=== PATIENT | female | born 1990 | race Caucasian/White ===

== ENCOUNTER 2017-03-31 09:41 | Emergency (ER) | payer MEDICAID ==
[2017-03-31 10:21] LABS: microscopic required? YES; urine erythrocyte TRACE (NEGATIVE)
[2017-03-31 10:28] LABS: CALCIUM 9.1 mg/dL (8.5-10.1); CARBON DIOXIDE 30.2 mmol/L (21-32); CHLORIDE SERUM 101 mmol/L (98-107); CREATININE SERUM 0.8 mg/dL (0.6-1.0); GFR1 > 60 mL/min; GLUCOSE SERUM 121 mg/dL (74-106); POTASSIUM SERUM 3.7 mmol/L (3.5-5.1); SODIUM SERUM 137 mmol/L (136-145)
[2017-03-31 10:37] LABS: PLATELET COUNT 343 x10^3mcL (130-400)
[2017-03-31 10:54] LABS: BASOPHIL % 0 % (0-2)
[2017-03-31 13:17] VITALS: BP 134/79
== END 2017-03-31 13:17 | disposition home or self-care (01) ==
LOC: ED 09:41
PROVIDERS: Emergency Medicine
DX: G43.109 Migraine with aura, not intractable, without status migrainosus (principal); I10 Essential (primary) hypertension
CPT/HCPCS: J3010; J3030

== ENCOUNTER 2018-02-18 16:54 | Emergency (ER) | payer MEDICAID ==
[~2018-02-18] VITALS: Ht 170.2 cm; Wt 163.3 kg
[2018-02-18 17:00] VITALS: Ht 170.2 cm; Wt 163.3 kg
[2018-02-18 19:13] LABS: BASOPHIL % 0.3 % (0-2); PLATELET COUNT 336 x10^3mcL (130-400)
[2018-02-18 19:16] LABS: RED CELL DISTRIBUTION WIDTH 16.1 % (11.5-14.5)
[2018-02-18 19:23] LABS: CALCIUM 8.8 mg/dL (8.5-10.1); CHLORIDE SERUM 102 mmol/L (98-107); CREATININE SERUM 0.9 mg/dL (0.6-1.0); GFR1 > 60 mL/min; GLUCOSE SERUM 99 mg/dL (74-106); POTASSIUM SERUM 3.4 mmol/L (3.5-5.1); SODIUM SERUM 140 mmol/L (136-145)
[2018-02-18 19:26] LABS: UA SPECIFIC GRAVITY 1.025 (1.005-1.035); microscopic required? YES; urine erythrocyte TRACE (NEGATIVE)
[2018-02-18 19:34] LABS: AMPHETAMINE QUAL UR NONE DETECTED (See below)
[2018-02-18 19:35] LABS: ALBUMIN 3.5 g/dL (3.4-5.0); ALKALINE PHOSPHATASE 65 U/L (46-116); ALT/SGPT 16 U/L (14-59); BILIRUBIN TOTAL 0.27 mg/dL (0.20-1.00); FREE T4 1.05 ng/dL (0.76-1.46); MAGNESIUM 1.9 mg/dL (1.8-2.4)
[2018-02-18 19:44] LABS: AST/SGOT 13 U/L (15-37)
[2018-02-19 00:25] VITALS: BP 133/65
== END 2018-02-19 00:25 | disposition home or self-care (01) ==
LOC: ED 16:54
PROVIDERS: Emergency Medicine
DX: R07.2 Precordial pain (principal); I10 Essential (primary) hypertension
CPT/HCPCS: 36415; 84439; Q0092; Q9967

== ENCOUNTER 2018-10-04 18:13 | Emergency (ER) | payer MEDICAID ==
[~2018-10-04] VITALS: Ht 170.2 cm; Wt 173.3 kg
[2018-10-04 18:38] VITALS: Ht 170.2 cm; Wt 173.3 kg
[2018-10-04 20:48] LABS: BASOPHIL % 0.3 % (0-2); PLATELET COUNT 327 x10^3mcL (130-400)
[2018-10-04 20:50] LABS: RED CELL DISTRIBUTION WIDTH 14.9 % (11.5-14.5)
[2018-10-04 20:56] LABS: CALCIUM 9.2 mg/dL (8.5-10.1); CARBON DIOXIDE 31.3 mmol/L (21-32); CHLORIDE SERUM 99 mmol/L (98-107); CREATININE SERUM 1.1 mg/dL (0.6-1.0); GFR1 > 60 mL/min; GLUCOSE SERUM 99 mg/dL (74-106); POTASSIUM SERUM 3.5 mmol/L (3.5-5.1); SODIUM SERUM 138 mmol/L (136-145)
[2018-10-04 21:00] LABS: ALBUMIN 3.5 g/dL (3.4-5.0); ALKALINE PHOSPHATASE 85 U/L (46-116); ALT/SGPT 26 U/L (14-59); AST/SGOT 19 U/L (15-37); BILIRUBIN TOTAL 0.3 mg/dL (0.20-1.00)
[2018-10-04 21:01] LABS: TOTAL PROTEIN, SERUM 8.3 g/dL (6.4-8.2)
[2018-10-04 22:18] VITALS: BP 138/75
== END 2018-10-04 22:19 | disposition home or self-care (01) ==
LOC: ED 18:13
PROVIDERS: Emergency Medicine
DX: R31.9 Hematuria, unspecified (principal); R30.0 Dysuria; E11.9 Type 2 diabetes mellitus without complications; R10.2 Pelvic and perineal pain
CPT/HCPCS: J1885; J7030

== ENCOUNTER 2019-01-12 21:21 | Emergency (ER) | payer OTHER ==
[~2019-01-12] VITALS: Ht 170.2 cm; Wt 175.1 kg
[2019-01-12 21:32] VITALS: BP 169/106; Ht 170.2 cm; Wt 175.1 kg
== END 2019-01-12 22:30 | disposition home or self-care (01) ==
LOC: ED 21:21
DX: R30.0 Dysuria (principal); I10 Essential (primary) hypertension; E11.9 Type 2 diabetes mellitus without complications
CPT/HCPCS: J0696

== ENCOUNTER 2019-01-22 20:10 | Emergency (ER) | payer OTHER ==
[~2019-01-22] VITALS: Ht 340.4 cm; Wt 79.8 kg
[2019-01-22 20:27] VITALS: Ht 340.4 cm; Wt 79.8 kg
[2019-01-22 22:54] LABS: UA SPECIFIC GRAVITY 1.025 (1.005-1.035); microscopic required? YES; urine erythrocyte 3+ (NEGATIVE)
[2019-01-22 23:07] LABS: BASOPHIL % 0.2 % (0-2); PLATELET COUNT 314 x10^3mcL (130-400)
[2019-01-22 23:09] LABS: AMPHETAMINE QUAL UR NONE DETECTED (See below)
[2019-01-22 23:10] LABS: RED CELL DISTRIBUTION WIDTH 14.9 % (11.5-14.5)
[2019-01-22 23:14] LABS: CALCIUM 8.8 mg/dL (8.5-10.1); CARBON DIOXIDE 27.1 mmol/L (21-32); CHLORIDE SERUM 106 mmol/L (98-107); CREATININE SERUM 0.9 mg/dL (0.6-1.0); GFR1 > 60 mL/min; GLUCOSE SERUM 111 mg/dL (74-106); POTASSIUM SERUM 3.8 mmol/L (3.5-5.1); SODIUM SERUM 140 mmol/L (136-145)
[2019-01-22 23:19] LABS: ALBUMIN 3.2 g/dL (3.4-5.0); ALKALINE PHOSPHATASE 61 U/L (46-116); ALT/SGPT 38 U/L (14-59); AST/SGOT 18 U/L (15-37); BILIRUBIN TOTAL 0.1 mg/dL (0.20-1.00); CHOLESTEROL 142 mg/dL (<200); HDL CHOLESTEROL 28 mg/dL (40-60); LIPASE 69 IU/L (73-393); TOTAL PROTEIN, SERUM 7.2 g/dL (6.4-8.2)
[2019-01-23 01:54] VITALS: BP 145/78
== END 2019-01-23 01:54 | disposition home or self-care (01) ==
LOC: ED 20:10
PROVIDERS: Emergency Medicine
DX: R07.89 Other chest pain (principal); I45.10 Unspecified right bundle-branch block; I44.0 Atrioventricular block, first degree; E46 Unspecified protein-calorie malnutrition; D64.9 Anemia, unspecified; I10 Essential (primary) hypertension; E11.9 Type 2 diabetes mellitus without complications; Z68.43 Body mass index [BMI] 50.0-59.9, adult
CPT/HCPCS: 36415; 83880; G0480

== ENCOUNTER 2019-02-05 13:20 | Emergency (ER) | payer OTHER ==
[~2019-02-05] VITALS: Ht 170.2 cm; Wt 174.6 kg
[2019-02-05 13:37] VITALS: Ht 170.2 cm; Wt 174.6 kg
[2019-02-05 17:11] LABS: PLATELET COUNT 325 x10^3mcL (130-400)
[2019-02-05 17:15] LABS: BASOPHIL % 0 % (0-2); RED CELL DISTRIBUTION WIDTH 15.3 % (11.5-14.5)
[2019-02-05 18:49] VITALS: BP 134/74
== END 2019-02-05 18:49 | disposition home or self-care (01) ==
LOC: ED 13:20
PROVIDERS: Emergency Medicine
DX: N93.8 Other specified abnormal uterine and vaginal bleeding (principal); I10 Essential (primary) hypertension; E11.9 Type 2 diabetes mellitus without complications
CPT/HCPCS: 36415; Q0092

== ENCOUNTER 2019-06-17 18:59 | Emergency (ER) | payer OTHER ==
[~2019-06-17] VITALS: Ht 170.2 cm; Wt 168.7 kg
[2019-06-17 19:21] VITALS: Ht 170.2 cm; Wt 168.7 kg
[2019-06-17 21:13] LABS: UA SPECIFIC GRAVITY <=1.005 (1.005-1.035); microscopic required? YES; urine erythrocyte TRACE (NEGATIVE)
[2019-06-17 21:31] LABS: BASOPHIL % 0.1 % (0-2)
[2019-06-17 21:43] LABS: PLATELET COUNT 404 x10^3mcL (130-400)
[2019-06-17 21:56] LABS: CALCIUM 8.5 mg/dL (8.5-10.1); CARBON DIOXIDE 26.8 mmol/L (21-32); CHLORIDE SERUM 101 mmol/L (98-107); GFR1 > 60 mL/min; GLUCOSE SERUM 112 mg/dL (74-106); POTASSIUM SERUM 3.7 mmol/L (3.5-5.1); SODIUM SERUM 138 mmol/L (136-145)
[2019-06-17 22:01] LABS: ALKALINE PHOSPHATASE 76 U/L (46-116); ALT/SGPT 21 U/L (14-59); AST/SGOT 13 U/L (15-37); BILIRUBIN TOTAL 0.4 mg/dL (0.20-1.00); C REACTIVE PROTEIN 6.1 mg/dL (<=0.9); TOTAL PROTEIN, SERUM 8.2 g/dL (6.4-8.2)
[2019-06-17 22:07] LABS: ALBUMIN 3.2 g/dL (3.4-5.0)
[2019-06-17 22:42] LABS: ERYTHROCYTE SED RATE 51 mm/hr (0-20)
[2019-06-18] MEDS ORDERED: HYDROCHLOROTHIA25 MG PO (00:08)
[2019-06-18] MEDS ORDERED: LIPI10 PO (00:09)
[2019-06-18] MEDS ORDERED: PRINIVIL10 MG PO (00:09)
[2019-06-18 03:08] VITALS: BP 135/77
== END 2019-06-18 03:08 | disposition short-term general hospital (02) ==
LOC: ED 18:59
PROVIDERS: Specialist
DX: A41.9 Sepsis, unspecified organism (principal); N10 Acute pyelonephritis; I10 Essential (primary) hypertension; E11.9 Type 2 diabetes mellitus without complications
CPT/HCPCS: J0696; J1885; J7030; J7060

== ENCOUNTER 2019-10-01 06:17 | Emergency (ER) | payer OTHER ==
[~2019-10-01] VITALS: Ht 170.2 cm; Wt 166.5 kg
[~2019-10-01 06:17] MED LIST: HYDROCHLOROTHIA25 MG PO; LIPI10 PO; PRINIVIL10 MG PO
[2019-10-01 06:21] VITALS: Ht 170.2 cm; Wt 166.5 kg
[2019-10-01 06:50] VITALS: BP 153/85
== END 2019-10-01 06:45 | disposition home or self-care (01) ==
LOC: ED 06:17
DX: J02.8 Acute pharyngitis due to other specified organisms (principal); I10 Essential (primary) hypertension; E11.9 Type 2 diabetes mellitus without complications; E78.00 Pure hypercholesterolemia, unspecified